=== PATIENT | male | born 1930 | race Native Hawaiian/Other Pacific Islander ===

== ENCOUNTER 2017-05-27 11:35 | Outpatient (CLI) | payer OTHER, MEDICARE ==
[~2017-05-27 11:35] MED LIST: ASPIR-8181 MG PO; METOPROLOL25 M1 OR; PRINIVIL5 MG OR; SIMV20TA2 PO
== END 2017-05-27 12:40 | disposition home or self-care (01) ==
LOC: CT 11:35
DX: R26.89 Other abnormalities of gait and mobility (principal); G25.89 Other specified extrapyramidal and movement disorders; Z86.73 Personal history of transient ischemic attack (TIA), and cerebral infarction without residual deficits

== ENCOUNTER 2018-10-21 10:43 | Outpatient (CLI) | payer OTHER, MEDICARE | END 2018-10-21 21:37 | disposition home or self-care (01) | LOC: MRI 10:43 | DX: R29.6 Repeated falls (principal); Z91.81 History of falling; R27.0 Ataxia, unspecified; M48.00 Spinal stenosis, site unspecified ==

== ENCOUNTER 2019-08-25 11:11 | Outpatient (CLI) | payer OTHER, MEDICARE | END 2019-08-25 19:48 | disposition home or self-care (01) | LOC: RESP 11:11 | DX: I25.10 Atherosclerotic heart disease of native coronary artery without angina pectoris (principal) | CPT/HCPCS: 93306 ==